=== PATIENT | female | born 1960 | race Caucasian/White ===

== ENCOUNTER 2017-04-30 21:31 | Emergency (ER) | payer MEDICAID | END 2017-04-30 23:01 | disposition home or self-care (01) | LOC: D.ER 21:31 | DX: R19.7 Diarrhea, unspecified (principal); F17.200 Nicotine dependence, unspecified, uncomplicated ==

== ENCOUNTER 2019-02-07 15:33 | Observation (INO) | payer MEDICAID ==
[~2019-02-07] VITALS: Ht 167.6 cm; Wt 85.9 kg
--- NOTE | ~2019-02-07 | DS ---
PATIENT:FOSTER SARKAR :58 MEDICAL RECORD: [id number] DISCHARGE SUMMARY ADMISSION DATE: 02/07/19 DISCHARGE DATE: 02/08/19 DISCHARGE DIAGNOSES: 1. Chest pain. 2. Smoking history. 3. Hypertension. HISTORY AND HOSPITAL COURSE: Ms. Sarkar presents with chest pain and hypertension. Nuclear stress test was normal. Discharged home with lisinopril 20 mg every day. She will follow up with primary care physician. TRANSINT:[id number] Voice Confirmation ID: [id number] DOCUMENT ID: [id number] RACHID DETN MD CC: [id number] DICTATION DATE: 02/08/19 1204 BLOWING WEASAND: 02/09/19 0812 DIS IN 02/08/19 [id number] [place] [address]
--- NOTE | ~2019-02-07 | ST ---
PATIENT:FOSTER LU MEDICAL RECORD: [id number] SEX: F LOCATION:[address] ORDER #: ADMISSION DATE: 02/07/19 AGE OF PATIENT: 58 REFERRING PHYSICIAN: INTERPRETING PHYSICIAN: RACHID DENT MD DATE OF SERVICE: 02/08/2019 PROCEDURE: Nuclear stress test. INDICATION: Chest pain of unknown etiology. She was exercised on standard Lexiscan protocol with 30 mCi of sestamibi injected at peak stress, 12 mCi used previously for rest images. FINDINGS: Gated SPECT reveals preserved ejection fraction at 71% with good wall motion and thickening and brightening throughout all segments. SPECT imaging: Cardiolite was used as myocardial perfusion agent. There is homogeneous uptake throughout all segments at rest and stress with no evidence of inducible ischemia or previous infarction. OVERALL IMPRESSION: 1. This is a normal nuclear stress test with no evidence of inducible ischemia or previous infarction. 2. Gated SPECT reveals a preserved ejection fraction at 71%. In this patient with ongoing symptomatology, the current scan does not suggest the presence of hemodynamically significant coronary artery disease. Evaluate noncardiac etiology of chest pain. TRANSINT:[id number] Voice Confirmation ID: [id number] DOCUMENT ID: [id number] RACHID DENT MD CC: [id number] DICTATION DATE: 02/08/19 1205 ALARM ADJUSTER: 02/09/19 0813 DIS IN 02/08/19 [place] [id number] [place] [id number]
[2019-02-07 16:41] VITALS: BP 174/96
[2019-02-07 16:56] LABS: BASOPHILS 0.2 % (0-2); EOSINOPHILS 2.7 % (0-7); HEMATOCRIT 46.5 % (36.0-48.0); HEMOGLOBIN 15.4 g/dL (12-16); IMMATURE GRANULOCYTES 0.1 % (0-5); LYMPHOCYTES 27.2 % (15-50); MCHC 33.1 g/dL (31.0-37.0); MCV 93.8 fL (80.0-100.0); MEAN PLATELET VOLUME 10.3 fL (7.4-10.4); MONOCYTES 5.1 % (2-11); NEUTROPHILS 64.7 % (40-80); PLATELET COUNT 322 10x3/uL (130-400); RBC 4.96 10x6/uL (4.00-5.40); RDW 12.5 % (11.5-14.5); WBC 8.8 10x3/uL (4.8-10.8)
--- NOTE | 2019-02-07 16:58 | NUR ---
RECIEVED REPORT FROM ER.
[2019-02-07 17:05] LABS: APTT 27.9 SECONDS (22.8-39.4); INR 0.93 (0.85-1.17)
[2019-02-07 17:13] LABS: CALC OSMOLALITY 279 mosm/kg (275-300); CALCIUM 9.2 mg/dL (8.5-10.1); CARBON DIOXIDE 29.5 mmol/L (21.0-32.0); CHLORIDE - SERUM 102 mmol/L (98-107); CREATININE - SERUM 0.9 mg/dL (0.6-1.3); GLUCOSE 124 mg/dL (74-106); POTASSIUM - SERUM 4.2 mmol/L (3.5-5.1); SODIUM 139 mmol/L (136-145); UREA NITROGEN 14 mg/dL (7-18); eGFR NON AFRICAN AMERICAN 68 mL/min (90-120)
--- NOTE | 2019-02-07 17:18 | NUR ---
RECIEVED PT IN ROOM VIA WHEELCAHIR/AMBULATION. ALERT AND ORIENTED X4. AMBULATED WITHOUT DIFFICULTY. PLEASANT DEMENOR, STATES NO PAIN AT THIS TIME. SISTER AT BEDSIDE. CL IN [facility], SRX2.
[2019-02-07 17:29] LABS: ALBUMIN 3.3 g/dL (3.4-5.0); ALKALINE PHOSPHATASE 121 U/L (46-116); ALT (SGPT) 43 U/L (10-68); BILIRUBIN - TOTAL 0.41 mg/dL (0.2-1.3); CKMB 0.8 U/L (0.0-3.6); CREATINE KINASE 85 UL (21-215); PROTEIN - SERUM 8.2 g/dL (6.4-8.2)
[2019-02-07 17:34] LABS: TROPONIN-I < 0.017 ng/mL (0.000-0.060)
--- NOTE | 2019-02-07 18:24 | NUR ---
PT SETTLED INTO ROOM, RECIEVED SUPPER TRAY. NO COMPLAINTS OR CONCERNS, ALL QUESTIONS ANSWERED TO THE BEST OF MY ABILITY. FAMILY AT BEDSIDE, TELEMTRY ON, CL IN REACH, SRX2
[2019-02-07 18:25] VITALS: BP 145/95; BMI 30.7
--- NOTE | 2019-02-07 19:37 | NUR ---
RECIEVED UP IN BED WITH FAMILY AT BEDSIDE. ALERT AND ORIENTED X4. UP AD BENITO TO B/R. IV TO RIGHT HAND SL.. DENIES ANY PAIN OR NEEDS AT THIS TIME.
[2019-02-07 23:20] LABS: CKMB 0.5 U/L (0.0-3.6); CREATINE KINASE 86 UL (21-215)
[2019-02-07 23:22] LABS: TROPONIN-I < 0.017 ng/mL (0.000-0.060)
[2019-02-08] VITALS: BP 145/91
[2019-02-08 03:24] LABS: BASOPHILS 0.2 % (0-2); EOSINOPHILS 3.1 % (0-7); HEMATOCRIT 43.5 % (36.0-48.0); HEMOGLOBIN 14.6 g/dL (12-16); IMMATURE GRANULOCYTES 0.1 % (0-5); LYMPHOCYTES 35.1 % (15-50); MCH 31.3 pg (26.0-34.0); MCHC 33.6 g/dL (31.0-37.0); MCV 93.3 fL (80.0-100.0); MONOCYTES 5.7 % (2-11); NEUTROPHILS 55.8 % (40-80); PLATELET COUNT 279 10x3/uL (130-400); RBC 4.66 10x6/uL (4.00-5.40); RDW 12.5 % (11.5-14.5); WBC 9.8 10x3/uL (4.8-10.8)
--- NOTE | 2019-02-08 03:25 | NUR ---
C/O NAUSEA. STATES ' SHE'S BEEN HAVING HOT FLASHES ALL NIGHT AND HAS'NT SLEPT. NOW SHE IS NAUSEATED. GAVE ZOFRAN PER ORDERS WITH SOME STATED RELIEF AND PLACED A FAN IN THE ROOM.
[2019-02-08 03:50] LABS: ALBUMIN 2.8 g/dL (3.4-5.0); ALKALINE PHOSPHATASE 104 U/L (46-116); ALT (SGPT) 34 U/L (10-68); BILIRUBIN - TOTAL 0.34 mg/dL (0.2-1.3); CALC OSMOLALITY 279 mosm/kg (275-300); CALCIUM 8.5 mg/dL (8.5-10.1); CARBON DIOXIDE 27.8 mmol/L (21.0-32.0); CHLORIDE - SERUM 105 mmol/L (98-107); CKMB 0.5 U/L (0.0-3.6); CREATINE KINASE 61 UL (21-215); GLUCOSE 106 mg/dL (74-106); POTASSIUM - SERUM 4.2 mmol/L (3.5-5.1); PROTEIN - SERUM 7.2 g/dL (6.4-8.2); SODIUM 140 mmol/L (136-145); TROPONIN-I < 0.017 ng/mL (0.000-0.060); UREA NITROGEN 15 mg/dL (7-18); eGFR NON AFRICAN AMERICAN 60 mL/min (90-120)
[2019-02-08 04:00] VITALS: BP 147/82
--- NOTE | 2019-02-08 07:21 | NUR ---
REPORT RECEIVED. WILL CONTINUE WITH POC. PT CURRENTLY LYING SEMI FOWLERS. CALL LIGHT W/I REACH. PT IS ASLEEP WITH EYES CLOSED AT THIS TIME. RR EVEN AND UNLABORED ON RA. R.HAND PIV IS SALINE LOCKED. NO S/S OF DISTRESS NOTED. PT DENEIS ANY NEEDS AT THIS TIME. WILL CTM.
[2019-02-08 08:50] VITALS: BP 147/94
[2019-02-08 09:06] VITALS: Ht 167.6 cm; Wt 85.9 kg
[2019-02-08 11:43] LABS: CKMB 0.5 U/L (0.0-3.6); CREATINE KINASE 93 UL (21-215)
[2019-02-08 11:47] LABS: TROPONIN-I < 0.017 ng/mL (0.000-0.060)
--- NOTE | 2019-02-08 12:05 | HP ---
PATIENT: FOSTER SARKAR MEDICAL RECORD: [id number] ACCOUNT: [id number] LOCATION:[address] : 58 ADMISSION DATE: 02/07/19 PCP: TERE ARMENTA MD HISTORY AND PHYSICAL EXAMINATION DATE OF SERVICE: 02/08/2019 DIAGNOSES: 1. Chest pain. 2. Smoking history. 3. Hypertension. HISTORY OF PRESENT ILLNESS: Ms. Sarkar has no history of ischemic heart disease. For the past 3 days, she has had chest pain, is relatively typical anginal pain, a dull aching heavy pressure sensation across the anterior to the left chest, some radiation to her shoulder area. When she came in, she was hypertensive with systolic blood pressure in the 180 range. She does not have a history of hypertension. She is in the 140 range today. She is not having any chest pain. Her EKG is with no acute ST-T abnormalities. Troponin is normal. PHYSICAL EXAMINATION: CONSTITUTIONAL/GENERAL APPEARANCE: Well nourished, well developed, appears stated age. EYES: Lids and conjunctivae noninjected. No discharge. No pallor. ENT: Lips within normal limit. No cyanosis. No pallor. NECK: Carotid arteries, bilateral normal upstroke. No bruits. No thrills. No jugular venous pressure or distention. CERVICAL LYMPH NODES: Nontender. Nonenlarged. THYROID: Not enlarged. No nodules. CARDIOVASCULAR: Precordial exam, nondisplaced. No heaves or pericardial thrills. Rate and rhythm, regular. Heart sounds, normal S1, normal S2. No S3, no gallop, no rub. Systolic murmur, not heard. Diastolic murmur, not heard. RESPIRATORY: Respiratory effort, unlabored. Normal curvature. No thoracic deformity. No chest wall tenderness. Percussion, resonant. Auscultation, clear. No wheezes, no rales, no rhonchi. ABDOMEN: Soft, nondistended, nontender. No abdominal pain, no vomiting and normal appetite. MUSCULOSKELETAL: No joint tenderness, normal gait, normal tone. SKIN: Warm and dry. OVERALL IMPRESSION: Chest pain compatible with angina. We will risk stratify with stress testing, Cardiolite imaging. Further care depends upon the findings of the stress test. TRANSINT:[id number] Voice Confirmation ID: [id number] DOCUMENT ID: [id number] HISTORY AND PHYSICAL [id number] FOSTER SARKAR, RACHID MCKNIGHT at 1205 CC: [id number] DICTATION DATE: 02/08/19906 BALANCE WHEEL MOTION INSPECTOR: 02/08/19 1051 ADM IN [facility] [address] [place] [address]
[2019-02-08] MEDS ORDERED: LISINOPRIL20 MG (12:54)
--- NOTE | 2019-02-08 13:11 | NUR ---
PT DISCHARGED HOME VIA AMBULATION. PT REFUSED DISCHARGE. PIV REMOVD WITH CATHETER TIP FULLY INTACT. TELEMETRY REMOVED AND RETURNED. PT SIGNED PROPER DISCHARGE INSTRUCTIONS AND REMOVED ALL VALUABLES FROM THE ROOM.
== END 2019-02-08 13:12 | disposition home or self-care (01) ==
LOC: D.ER 15:33 → D.M2 16:03 → OBSVTIME 16:04 → D.M2 02-08 13:12
PROVIDERS: Family Medicine; ADMIT Internal Medicine Interventional Cardiology; ATTEND Internal Medicine Interventional Cardiology
DX: R07.9 Chest pain, unspecified (principal); I10 Essential (primary) hypertension; F17.210 Nicotine dependence, cigarettes, uncomplicated

== ENCOUNTER 2019-05-15 10:00 | Outpatient (CLI) | payer MEDICAID ==
[2019-02-08 09:06] VITALS: BMI 30.7
[~2019-05-15 10:00] MED LIST: LISINOPRIL20 MG
== END 2019-05-15 11:00 | disposition home or self-care (01) ==
LOC: D.MAMMO 10:00
PROVIDERS: ATTEND Family Medicine
DX: Z12.31 Encounter for screening mammogram for malignant neoplasm of breast (principal)